=== PATIENT | male | born 1980 | race Caucasian/White ===

== ENCOUNTER → 2017-08-18 | Outpatient (CLI) | payer BC, OTHER ==
[~2017-08-18] MED LIST: ZYRTEC 10 MG TA10 MG PO
== END ==
LOC: MRI 06:55
DX: M50.322 Other cervical disc degeneration at C5-C6 level (principal); M50.323 Other cervical disc degeneration at C6-C7 level; M25.78 Osteophyte, vertebrae; M62.81 Muscle weakness (generalized)

== ENCOUNTER → 2018-04-10 | Outpatient (CLI) | payer BC, OTHER ==
[~2018-04-10] VITALS: Ht 180.3 cm; Wt 79.3 kg
[~2018-04-10] MED LIST changes: +EXCEDRIN MIGRA1 EAC1 PO; +MELATONIN10 M2 PO
--- NOTE | ~2018-04-10 | HPC ---
[facility] [address] PAIN MANAGEMENT CONSULTATION Name: JOSÉ MIGUEL RAMIREZ [facility] [id number] Admission: 04/10/18 Attend Phys: Kam Perez DO Discharge: Date of : 84 Report #: [id number] THIS REPORT FOR: //name// CC: Kam Ferreira DATE OF SERVICE: 04/10/2018 CHIEF COMPLAINT: Neck pain, right upper extremity pain and paresthesias. HISTORY OF PRESENT ILLNESS: As you know, the patient is a 38-year-old male reporting a 1-1/2 year history of neck pain, right upper extremity pain with paresthesia that has progressively worsened. He was seen in consultation per the request of his neurosurgeon for evaluation for cervical radiculopathy. The patient was seen in consultation on 03/27/2018 where he chose to begin with medication management. He did not wish to undergo epidural injections at that time. We started the patient on Gralise long-acting form of gabapentin. He is now at 900 mg at night, but did not escalate further. He is not having any side effects of somnolence, decreased mental acuity, disorientation, confusion or mental slowing. He is noticing some improvement in symptoms. He returns to discuss options for treatment or possibly increasing his medication management further. ALLERGIES: DECONGESTANTS. CURRENT MEDICATIONS: Excedrin Migraine once p.r.n. pain, cetirizine 10 mg per day, Gralise 900 mg p.o. at bedtime. SOCIAL HISTORY: The patient denies tobacco, IV or illicit drug use. Admits to two alcohol beverages per week. 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 IMAGING: No new imaging available. PHYSICAL EXAMINATION: VITAL SIGNS: Blood pressure 130/92, pulse 73 and respiratory rate 16, unlabored. The patient is 100% on room air. Height 5 feet 11 inches tall, weight 174.8 pounds and BMI calculated 24.4. GENERAL: Well-developed, well-nourished, well-hydrated 38-year-old male appearing stated age. He is placing pain score no greater than 3/10. HEENT: Normocephalic and atraumatic. Pupils are equal, round and reactive to light. EXTREMITIES: Show no clubbing, no cyanosis and no edema. MUSCULOSKELETAL: Upper extremity strength is symmetrical again today 5/[address] [address] PAIN MANAGEMENT CONSULTATION Name: JOSÉ MIGUEL RAMIREZ Room #: REG [facility]#: [id number] Admission: 04/10/18 Attend Phys: Kam Perez DO Discharge: Date of : 84 Report #: [id number] for triceps strength on the right as well as biceps strength, which shows 4/5 strength. No muscle atrophy. Deep tendon reflexes are symmetrical at biceps, brachioradialis and triceps 2+/4, intact to light touch from C5 to T1 dermatomes. Spurling's test positive on right. ASSESSMENT: 1. Cervical radiculopathy. 2. Displacement of cervical intervertebral disk with radiculopathy. 3. Cervical spondylosis with radiculopathy. 4. Neural foraminal stenosis of the cervical spine. 5. Chronic intractable pain. PLAN: 1. The patient returns today in followup visit where we have discussed the efficacy of medication management. He does report improvement in symptoms from a pain standpoint with the Gralise therapy. We have reduced his pain from a little high of 6/10 to 3/10 with the Gralise. He is denying any side effects with therapy. We have suggested treatment options today, which would include escalating the Gralise dose further to try to gain further efficacy with the understanding that we will watch for any potential side effects as we escalate dosing. We also discussed and requested cervical epidural injections. After this discussion, the patient chose to move further with medication management. 2. The patient will increase his Gralise from 900 mg at night to 1200 mg at night starting this evening and continuing 1200 mg for the next 4 nights, then escalate to 1500 mg for 4 nights, then ultimately 1800 mg assuming no side effects. The patient was advised anytime during the titration of his medication he notes improvement in symptoms, stabilize at that dose and no further escalation. No improvement in symptoms, he is to escalate dose as directed. The patient was given a refill of Gralise in sample form to continue titration. 3. We will see the patient back in followup visit once he has reached an efficacious level of his Gralise. We will then provide a prescription to continue the medication. If no improvement in symptoms, we would recommend then looking towards requested cervical epidural injections. We will discuss this at followup visit. <ELECTRONICALLY SIGNED> By: Kam Perez DO 04/11/18 [id number] [id number] Kam Perez DO /nt
[2018-04-10 08:27] VITALS: BP 130/92
== END ==
LOC: PAIN 07:02
DX: M47.22 Other spondylosis with radiculopathy, cervical region (principal); M50.10 Cervical disc disorder with radiculopathy, unspecified cervical region; M48.02 Spinal stenosis, cervical region; G89.4 Chronic pain syndrome

== ENCOUNTER → 2019-02-19 | Outpatient (CLI) | payer BC, OTHER | LOC: CAT 07:40 | DX: K42.9 Umbilical hernia without obstruction or gangrene (principal); R16.0 Hepatomegaly, not elsewhere classified; N28.1 Cyst of kidney, acquired ==

== ENCOUNTER → 2021-04-27 | Outpatient (CLI) | payer BC, OTHER ==
[~2021-04-27] VITALS: Ht 177.8 cm; Wt 85.3 kg
[~2021-04-27] MED LIST changes: +MELATONIN5 MG PO
--- NOTE | ~2021-04-27 | HPC ---
[facility] [place] [address] PAIN MANAGEMENT CONSULTATION Name: JOSÉ MIGUEL RAMIREZ Room #: REG [facility] MiladCassieMonika.#: [id number] Admission: 04/27/21 Attend Phys: Kam Perez DO Discharge: Date of : 82 Report #: [id number] THIS REPORT FOR: cc: Scottie Kenney MD, Neal A. MD Johnson, James E. DO ~ cc: Jimi Ly DATE OF SERVICE: 04/27/2021 CHIEF COMPLAINT: Low back pain, bilateral lower extremity pain with paresthesias. HISTORY OF PRESENT ILLNESS: As you know, the patient is a 41-year-old male who reports acute onset of low back pain, bilateral lower extremity pain that presented on 06/06/2020. The patient reports that he was in his normal state of health when he twisted awkwardly, immediately feeling cramping in his low back and left lower extremity pain. He tried chiropractic manipulation with little relief. He states that somewhere in 09/2020, his pain began to project into the right lower extremity. He tried conservative treatment, but did not notice improvement in symptoms, he sought evaluation after his primary care physician, Dr. Scottie Kenney sent him to neurosurgery to discuss surgical options. The patient was seen in consultation on 04/08/[address] Jimi Ly who advised the patient surgical options may be necessary, but they would recommend a conservative approach trying epidural injections as initial treatment option. The patient was subsequently referred on to our clinic to discuss the possibility of undergoing lumbar epidural injections. The patient reports today his pain is steady and constant. Describes the pain as more of a burning, shooting, cramping, aching, sharp, numbness and tingling when describing symptoms. Place his current pain score at 3/10, daily average of 5-6/10, worst pain has been 9/10. The patient states that standing, walking, sitting exacerbate symptoms, minimizing movement and lying down tends to improve pain. He has been referred to our service to discuss treatment options for lumbar radiculopathy. PAST MEDICAL HISTORY: 1. Carpal tunnel syndrome. 2. Migraine headaches. 3. Seasonal allergies. 4. Irritable bowel syndrome. 5. Chronic low back pain. 6. History of umbilical hernia. PAST SURGICAL HISTORY: 1. Carpal tunnel release 2014. 2. Umbilical hernia repair 2019[place] [address] PAIN MANAGEMENT CONSULTATION Name: JAMESJOSÉ MIGUELDEMAR CASPER Room #: REG CL Thalia#: [id number] Admission: 04/27/21 Attend Phys: Kam Perez DO Discharge: Date of : 84 Report #: [id number] 3. Vasectomy 2020. 4. Tonsillectomy. SOCIAL HISTORY: The patient denies tobacco use. Denies IV or illicit drug use. Admits occasional alcohol beverage. 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 He is not in litigation in regards to pain. He is unaccompanied at today's visit. REVIEW OF SYSTEMS: Positive for headaches, wearing corrective eyewear, nocturia, change of force or stream urination, sexual difficulty, numbness and tingling sensations. All other review of systems negative per 12-point review of systems other than those listed in history of present illness. Pain impact score 39 of 70, moderate interference of daily activities secondary to pain. ALLERGIES: DECONGESTANTS. CURRENT MEDICATIONS: Melatonin 5 mg p.o. at bedtime, Excedrin Migraine once a day p.r.n., cetirizine 10 mg once a day. IMAGING: MRI of the lumbar spine dated 03/17/2021 shows spondylosis defects at L5 without associated edema. There is 4 mm anterolisthesis at L5-S1 with disk protrusion, severe foraminal impingement on the right greater than left with both exiting L5 nerve roots infected. PHYSICAL EXAMINATION: VITAL SIGNS: Blood pressure 153/100, pulse 58, respiratory rate 16 and unlabored. The patient is 100% on room air. Height 5 feet 10 inches tall, weight 188 pounds, BMI calculated 27.0. GENERAL: Well-developed, well-nourished, well-hydrated 41-year-old male appearing stated age, placing current pain score 2/10. HEENT: Normocephalic, atraumatic. Pupils equal, round and responsive to light. Extraocular muscles are intact. Speech fluent. The patient deemed a good historian. He is wearing a mask in compliance with COVID-19 regulations. LUNGS: Appear clear. No wheeze, rhonchi or rales. CARDIOVASCULAR: Regular. No appreciable gallop, no rub. ABDOMEN: Soft. EXTREMITIES: Show no clubbing, no cyanosis and no edema. MUSCULOSKELETAL: Lower extremity strength equal and symmetrical 5/5 except for hip flexors on the right, which is approximately 4/5. All remaining muscles in the lower extremities appear normal. Deep tendon reflexes 2+/4 at patella and Achilles. Ankle clonus negative. Babinski is negative. Seated straight leg raising positive. Supine straight leg raising positive on the right. Fabere's test is negative. Modified Gaenslen's positive for axial low back pain. [address] [place] [address] PAIN MANAGEMENT CONSULTATION Name: JOSÉ MIGUEL RAMIREZ Room #: REG [facility] [id number] Admission: 04/27/21 Attend Phys: Kam Perez DO Discharge: Date of : 84 Report #: [id number] clonus negative. Babinski is negative. Gait appears normal. ASSESSMENT: 1. Symptomatic lumbar radiculopathy. 2. Spondylolisthesis of L5 on S1. 3. Severe neural foraminal stenosis of the lumbar spine. 4. Chronic intractable pain. PLAN: 1. Based on today's physical exam and history the patient has provided, the description the patient uses in regards to pain as well as location of symptoms, it would appear he is suffering from lumbar radiculopathy that is presenting bilateral in nature. The findings at the L5-S1 level are consistent with the patient's symptoms, it is due to his foraminal stenosis at that level. The foraminal stenosis is secondary to spondylolisthesis of L5 on S1, which according to the MRI is a 5 mm distance. This has led to severe neural foraminal narrowing and thus the symptoms the patient is experiencing. The patient has discussed his case with Neurosurgery and they have advised to trial a conservative approach initially, if this is unsuccessful alleviating symptoms, then move forward with surgical options. The patient has been referred to our service to discuss the possibility of undergoing a lumbar epidural injection. 2. I would recommend the patient to undergo flexion, extension films prior to any injection. We will send the patient for x-ray imaging today. I am hopeful that this information can be reviewed quickly and we can see this patient back in consultation. I am concerned that the findings in the MRI do not show the pars defects that are likely there and there could be pathologic movement of the L5 on S1. Given the extent of the arthritic changes that are there, it is less likely that the patient is having pathologic movement in the area, but his listhesis is specifically due to that arthritic change and there are likely pars defects in the area. We will review those findings with x-ray imaging at our followup visit. 3. The patient will clear his schedule for tomorrow to undergo lumbar epidural injection under fluoroscopic guidance. He will need to make adjustments in his daily activity, be able to go home after the procedure and rest and recover from the procedure. We recommend at least 24-hour timeframe. He will clear his schedule for tomorrow. We will have him return to undergo the first in a series of epidural injections. 4. No medication changes made at today's visit. We recommend the patient continue current medical therapy. 5. We will see the patient back in followup visit tomorrow for a lumbar epidural injection under fluoroscopic guidance to address lumbar radicular symptoms. 6. We wish to thank Dr. Ly for the opportunity to see the patient in consultation. We will keep you apprised of his response to treatment as we [address] [address] PAIN MANAGEMENT CONSULTATION Name: JOSÉ MIGUEL RAMIREZ Room #: REG CLAmanda Vásquez#: [id number] Admission: 04/27/21 Attend Phys: Kam Perez DO Discharge: Date of : 84 Report #: [id number] address lumbar radicular symptoms. Again, we wish to thank you for the opportunity to see him in consultation. By: [id number] Kam Perez DO /nt
[2021-04-27 09:44] VITALS: BP 153/100
--- NOTE | 2021-04-27 10:49 | NUR ---
Pain Clinic Assessment: 1. History of Osteoarthritis: * NONE History of Rheumatoid Arthritis: * NONE 2. Height: 5 ft. 10 in. 177.8 cm. Weight: 188.0 lb. oz. 85.276 kg. Patient's BMI: 27.0 3. Vital Signs: BP: 153/100 Pulse: 58 Resp: 16 Temp: 02 Sat: 100 ECG Mon: 4. Pain Intensity: 2 5. Fall Risk: Dizziness: N Needs help standing or walking: N Fallen in the last 3 months: N Fall risk comments: 6. Patient on Blood Thinner: None 7. History of Hypertension: N 8. Opioid Therapy greater than 6 weeks: N Opiate Contract Signed: 9. Risk Assessment Tool Provided: 10. Functional Assessment Tool: 11. Recreational Drug Use: Never Drug Type: Tobacco Use: Former Smoker Tobacco Type: Chewing Tobacco Amount or Packs/day: How Many Years: Alcohol Use: Yes Frequency: Monthly Quant: 1-2 BEERS
== END ==
LOC: PAIN 08:57
PROVIDERS: ATTEND Anesthesiology Pain Medicine
DX: G89.4 Chronic pain syndrome (principal); M54.5 Low back pain; R20.2 Paresthesia of skin; G43.909 Migraine, unspecified, not intractable, without status migrainosus; K58.9 Irritable bowel syndrome, unspecified; M43.17 Spondylolisthesis, lumbosacral region; Z79.899 Other long term (current) drug therapy

== ENCOUNTER → 2021-04-28 | Outpatient (CLI) | payer BC, OTHER ==
[~2021-04-28] VITALS: Ht 170.2 cm; Wt 85.3 kg
--- NOTE | ~2021-04-28 | HPC ---
[facility] [place] [address] PAIN MANAGEMENT CONSULTATION Name: JOSÉ MIGUEL RAMIREZ Room #: REG [facility] MiladCasseiMonika.#: [id number] Admission: 04/28/21 Attend Phys: Kam Perez DO Discharge: Date of : 84 Report #: [id number] THIS REPORT FOR: cc: Scottie Kenney MD, Neal A. MD Johnson, James E. DO ~ cc: Jimi Ly DATE OF SERVICE: 04/28/2021 CHIEF COMPLAINT: Low back pain, bilateral lower extremity pain with paresthesias. HISTORY OF PRESENT ILLNESS: Of note, the patient is a pleasant 41-year-old male, reporting acute onset of low back pain, bilateral lower extremity pain that presented on 06/06/2020. He states he was in his normal state of health when he twisted awkwardly, immediately feeling cramping in his low back and left lower extremity. This then progressed to bilateral lower extremity symptoms. He sought evaluation through Neurosurgery, seeing Dr. Jimi Ly on 04/08/2021, diagnosed with lumbar radiculopathy secondary to findings at the L5-S1 level. They wish to trial conservative treatment before discussing surgical options. The patient was subsequently referred to our clinic. We saw the patient in consultation on 04/27/2021 where he was diagnosed with lumbar radiculopathy secondary to severe neural foraminal stenosis. He was made today's appointment to undergo lumbar epidural injection. The patient returns today in followup visit to undergo lumbar epidural injection under fluoroscopic guidance, reporting pain score 3/10. He has had no changes in medication management since our last visit. ALLERGIES: DECONGESTANTS. CURRENT MEDICATIONS: Melatonin, Excedrin Migraine, cetirizine. SOCIAL HISTORY: The patient denies tobacco use. Denies IV or illicit drug use. Admits to occasional alcohol beverage. 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 He is working, not receiving workmen's compensation, unaccompanied today. IMAGING: No new imaging available. PHYSICAL EXAMINATION: VITAL SIGNS: Blood pressure 146/110, pulse is 73, respiratory rate 16 and unlabored. The patient 100% on room air. GENERAL: Well-developed, well-nourished, well-hydrated 41-year-old male, appearing stated age. Pain is rated today at around 3/10. HEENT: He is normocephalic, atraumatic. Pupils equal, round and responsive. EXTREMITIES: Show no clubbing, no cyanosis, no edema. [address] [address] PAIN MANAGEMENT CONSULTATION Name: JOSÉ MIGUEL RAMIREZ Room #: REG [facility]ass[facility].#: [id number] Admission: 04/28/21 Attend Phys: Kma Perez DO Discharge: Date of : 84 Report #: [id number] MUSCULOSKELETAL: Lower extremity strength equal and symmetrical, 5/5 except for the hip flexors on the right, which are reduced to 4/5. Deep tendon reflexes are symmetrical at patella and Achilles. Ankle clonus negative. Seated straight leg raising positive. Supine straight leg raising positive on the right. ASSESSMENT: 1. Symptomatic lumbar radiculopathy. 2. Spondylolisthesis of L5 on S1. 3. Severe neural foraminal stenosis of lumbar spine. 4. Chronic intractable pain. PLAN: 1. The patient returns today in followup visit to undergo lumbar epidural injection under fluoroscopic guidance. He has been advised risks and benefits of the procedure. These risks include but are not necessarily limited to bleeding, bruising, infection, worsening pain, no relief of pain, also risk of temporary or permanent muscle weakness, temporary or permanent nerve damage, possible paralysis and . The patient states understood and wished to proceed. 2. No medication changes made at today's visit. The patient will continue current medical therapy as prior prescribed. 3. We will see the patient back in followup visit on an as needed basis for the next in the series of lumbar epidural injections. We are hopeful the patient will see good and prolonged benefit with today's procedure. PROCEDURE NOTE: DESCRIPTION OF PROCEDURE: L5-S1 right paramedian epidural steroid injection under fluoroscopic guidance. This is the first procedure of the first series that the patient is undergoing. After obtaining written consent, the patient was taken back to the fluoroscopy suite, placed in a prone position with pillow under the abdomen to decrease lumbar lordosis. The skin overlying the lumbosacral area was then prepped and draped in aseptic fashion. The L5-S1 vertebral interspace was then identified by AP fluoroscopy. The skin and subcutaneous tissue overlying the target site of injection was anesthetized with 3 mL 1% lidocaine. A 20-gauge 3-1/2 inch Tuohy needle was then advanced under fluoroscopic guidance towards the epidural space using a right paramedian approach. The epidural space was identified using loss of resistance to air technique. After negative aspiration for heme or cerebrospinal fluid, a total of 1 mL of Omnipaque was injected. A lumbar epidurogram was confirmed using both AP and lateral fluoroscopy. After negative aspiration for heme or cerebrospinal fluid, 5 mL of [address] [address] PAIN MANAGEMENT CONSULTATION Name: JOSÉ MIGUEL RAMIREZ Room #: REG CLI [facility]#: [id number] Admission: 04/28/21 Attend Phys: Kam Perez DO Discharge: Date of : 84 Report #: [id number] a solution containing 2 mL, 40 mg/ mL, 80 mg total triamcinolone along with 3 mL of lidocaine 1% was injected in increments. Contrast spread was noted posterior epidural space. The needle was then retracted approximately half way and needle tract flushed with 1 mL of 1% lidocaine. Needle was then removed. There were no apparent sensory or motor deficits in the lower extremity following the procedure. A sterile bandage was placed over the injection site. The heart rate, pulse, oximetry and blood pressure were continuously monitored after the procedure. There were no apparent complications. The patient tolerated the procedure well and was carefully escorted to the recovery room in stable condition. There were no apparent complications. After meeting discharge criteria, the patient was then discharged home. By: [id number] Kam Perez DO /nt
[2021-04-28 09:44] VITALS: BP 146/100
--- NOTE | 2021-04-28 09:48 | NUR ---
Pain Clinic Assessment: 1. History of Osteoarthritis: * NONE History of Rheumatoid Arthritis: * NONE 2. Height: 5 ft. 7 in. 170.2 cm. Weight: 188.0 lb. oz. 85.276 kg. Patient's BMI: 29.4 3. Vital Signs: BP: 146/100 Pulse: 731 Resp: Temp: 02 Sat: ECG Mon: 4. Pain Intensity: 3 5. Fall Risk: Dizziness: N Needs help standing or walking: N Fallen in the last 3 months: N Fall risk comments: 6. Patient on Blood Thinner: None 7. History of Hypertension: N 8. Opioid Therapy greater than 6 weeks: N Opiate Contract Signed: 9. Risk Assessment Tool Provided: LOW-0 10. Functional Assessment Tool: 11. Recreational Drug Use: Never Drug Type: Tobacco Use: Former Smoker Tobacco Type: Amount or Packs/day: How Many Years: Alcohol Use: Yes Frequency: Quant:
== END | disposition home or self-care (01) ==
LOC: PAIN 06:59
PROVIDERS: ATTEND Anesthesiology Pain Medicine
DX: M54.16 Radiculopathy, lumbar region (principal); M43.16 Spondylolisthesis, lumbar region; M48.061 Spinal stenosis, lumbar region without neurogenic claudication; G89.29 Other chronic pain; Z98.890 Other specified postprocedural states; Z79.899 Other long term (current) drug therapy; Z87.891 Personal history of nicotine dependence; Z88.8 Allergy status to other drugs, medicaments and biological substances

== ENCOUNTER → 2021-05-11 | Outpatient (CLI) | payer BC, OTHER | LOC: CAT 10:27 → MRI 16:22 | PROVIDERS: ATTEND Specialist | DX: M51.37 Other intervertebral disc degeneration, lumbosacral region (principal); M43.06 Spondylolysis, lumbar region; M48.07 Spinal stenosis, lumbosacral region ==